=== PATIENT | male | born 1995 | race Caucasian/White ===

== ENCOUNTER 2017-04-04 14:27 | Emergency (ER) | payer SELFPAY ==
[~2017-04-04] VITALS: Ht 177.8 cm; Wt 70.3 kg
[2017-04-04] MEDS ORDERED: NORCO, ANEXSIA 5/325MG TABLET (HYDROcodone/ACETAMINOPHEN) PO ONE (15:30)
[2017-04-04] MEDS ORDERED: NAPR500T PO (15:50)
[2017-04-04 15:51] VITALS: BP 114/66
--- NOTE | 2017-04-04 15:55 | REP ---
Clinical: Trauma. Technique: Frontal view of the chest with multiple views of the right hemithorax. Findings: Frontal view of the chest demonstrates no acute cardiopulmonary process. Multiple views of the right hemithorax demonstrates no obvious acute rib fracture or pathology. Impression: Normal right rib series Signed by Remy Boateng MD 04/04/2017 03:46 P
== END 2017-04-04 16:04 | disposition home or self-care (01) ==
LOC: M ED 15:43
DX: S20.211A Contusion of right front wall of thorax, initial encounter (principal); W17.89XA Other fall from one level to another, initial encounter; Y92.89 Other specified places as the place of occurrence of the external cause; Y93.89 Activity, other specified; Y99.8 Other external cause status; F17.210 Nicotine dependence, cigarettes, uncomplicated

== ENCOUNTER 2017-05-25 18:23 | Emergency (ER) | payer SELFPAY ==
[~2017-05-25] VITALS: Ht 175.3 cm; Wt 70.5 kg
[~2017-05-25 18:23] MED LIST: NAPR500T PO
[2017-05-25] MEDS ORDERED: NORCO, ANEXSIA 5/325MG TABLET (HYDROcodone/ACETAMINOPHEN) PO ONE (19:45)
[2017-05-25] MEDS ORDERED: IBUPROFEN 800 MG TAB PO ONE (19:45)
[2017-05-25] MEDS ORDERED: IBUP80TA PO (20:25)
[2017-05-25 20:42] VITALS: BP 112/68
--- NOTE | 2017-05-26 07:23 | REP ---
Right knee five views: Comparison is 06/11/2016. Mineralization is normal. There is no fracture or dislocation. There is no effusion. No unusual calcifications. I suspect there is soft tissue edema anteriorly inferior to the patella. This is similar to the comparison study. Impression: Anterior soft tissue edema. No fracture or dislocation. Signed by Russ Lacey MD 05/26/2017 07:15 A
== END 2017-05-25 20:49 | disposition home or self-care (01) ==
LOC: M ED 18:23
DX: M70.41 Prepatellar bursitis, right knee (principal)

== ENCOUNTER 2019-09-01 06:18 | Emergency (ER) | payer SELFPAY ==
[~2019-09-01] VITALS: Ht 175.3 cm; Wt 68.2 kg
[~2019-09-01 06:18] MED LIST changes: +IBUP80TA PO; +NAPR-837 PO; -NAPR500T PO
[2019-09-01] MEDS ORDERED: ACET-840 PO (06:26)
[2019-09-01] MEDS ORDERED: KETOROLAC 60 MG/2 ML VIAL (J1885) IM ONE (07:00)
[2019-09-01] MEDS ORDERED: CYCLOBENZAPRINE 10 MG TAB PO ONE (07:00)
[2019-09-01] MEDS ORDERED: ACETAMINOPHEN 325 MG TAB PO ONE (07:00)
--- NOTE | 2019-09-01 07:38 | REP ---
Clinical: thoracic pain. Technique: AP, lateral, and swimmers views. Findings: Alignment and kyphosis is maintained. Vertebral bodies intact. No acute fracture / compression injury or subluxation. No degenerative changes. Paravertebral soft tissues are normal. Impression: Normal thoracic spine series. Electronically Signed by Remy Boateng MD 09/01/2019 07:30 A
--- NOTE | 2019-09-01 07:40 | REP ---
Clinical: Lower back pain . Technique: AP, lateral, bilateral oblique, and coned-down views. Findings: Alignment and lordosis is maintained. The vertebral bodies including transverse process and spinous processes are intact and normal. There is no evidence for acute fracture / compression injury or subluxation. No evidence for spondylolysis or spondylolisthesis. No significant degenerative change is noted. Impression: Normal lumbosacral spine radiograph series. Electronically Signed by Remy Boateng MD 09/01/2019 07:31 A
[2019-09-01 07:46] LABS: APPEARANCE, URINE CLEAR (CLEAR); BACTERIA, URINE AUTO NEGATIVE (NEGATIVE); BILIRUBIN, URINE AUTO NEGATIVE (NEGATIVE); BLOOD, URINE BLOOD NEGATIVE (NEGATIVE); COLOR, URINE STRAW (YELLOW); GLUCOSE, URINE (UA) AUTO NEGATIVE (NEGATIVE); KETONE, URINE AUTO NEGATIVE (NEGATIVE); LEUKOCYTE ESTERASE, URINE AUTO NEGATIVE (NEGATIVE); NITRITE, URINE AUTO NEGATIVE (NEGATIVE); PROTEIN, URINE AUTO NEGATIVE (NEGATIVE); RBC, URINE AUTO 0 /HPF (0-3); SPECIFIC GRAVITY URINE AUTO 1.003 (1.002-1.035); SQUAMOUS EPITHELIAL CELL UR AU 0 /HPF (0-6); UROBILINOGEN, URINE AUTO 0.2 mg/dL (0.0-2.0); WBC, URINE AUTO 0 /HPF (0-3)
[2019-09-01] MEDS ORDERED: KETO10TAB PO (08:11)
[2019-09-01] MEDS ORDERED: CYCL10TA PO ×2 (08:11→08:12)
[2019-09-01 08:24] VITALS: BP 113/61
== END 2019-09-01 08:25 | disposition home or self-care (01) ==
LOC: M ED 06:18
DX: M62.830 Muscle spasm of back (principal); F17.200 Nicotine dependence, unspecified, uncomplicated
CPT/HCPCS: 72070; 72110; 81001; 96372; 99283; J1885

== ENCOUNTER 2020-02-22 12:55 | Emergency (ER) | payer SELFPAY ==
[~2020-02-22] VITALS: Ht 177.8 cm; Wt 69.8 kg
[~2020-02-22 12:55] MED LIST changes: +ACET-840 PO; +CYCL-707 PO; +KETO10TAB PO
[2020-02-22] MEDS ORDERED: LIDOCAINE 1% MDV 20ML VIAL SC ONE (13:45)
[2020-02-22] MEDS ORDERED: BACT800T5 PO (14:04)
[2020-02-22 14:22] VITALS: BP 100/57
== END 2020-02-22 14:23 | disposition home or self-care (01) ==
LOC: M ED 12:55
DX: L05.01 Pilonidal cyst with abscess (principal)

== ENCOUNTER 2020-06-29 05:20 | Emergency (ER) | payer SELFPAY ==
[~2020-06-29] VITALS: Ht 175.3 cm; Wt 77.2 kg
[~2020-06-29 05:20] MED LIST changes: +BACT800T5 PO
--- NOTE | 2020-06-29 06:45 | REPVR ---
PROCEDURE INFORMATION: Exam: XR Right Shoulder Exam date and time: 06/29/2020 6:14 AM Age: 24 years old Clinical indication: Pain; Other: Injury TECHNIQUE: Imaging protocol: XR Right shoulder. Views: 2 or more views. COMPARISON: No relevant prior studies available. FINDINGS: Bones/joints: Normal. Soft tissues: Normal. IMPRESSION: No acute findings. Electronically signed by: Linwood Loera On 06/29/2020 06:45:15 AM
[2020-06-29 07:20] VITALS: BP 126/86
== END 2020-06-29 07:28 | disposition home or self-care (01) ==
LOC: M ED 05:20
DX: M25.511 Pain in right shoulder (principal); F17.200 Nicotine dependence, unspecified, uncomplicated

== ENCOUNTER 2021-02-23 11:35 | Emergency (ER) | payer SELFPAY ==
[~2021-02-23] VITALS: Ht 175.3 cm; Wt 70.5 kg
[2021-02-23] MEDS ORDERED: LIDOCAINE 1% MDV 20ML VIAL SC ONE (13:05)
[2021-02-23] MEDS ORDERED: PERCOCET 5MG/325MG TAB PO ONE (13:35)
[2021-02-23] MEDS ORDERED: ONDANSETRON 4 MG ORAL DISINTEGRATING TAB PO ONE (13:35)
[2021-02-23] MEDS ORDERED: BACTRIM 160MG/800MG DS TAB PO ONE (13:40)
[2021-02-23] MEDS ORDERED: BACT800T5 PO (14:04)
[2021-02-23 14:16] VITALS: BP 154/87
== END 2021-02-23 14:17 | disposition home or self-care (01) ==
LOC: M ED 11:35
DX: L05.01 Pilonidal cyst with abscess (principal); B35.4 Tinea corporis; F17.200 Nicotine dependence, unspecified, uncomplicated
CPT/HCPCS: 10060; 10160; 87070; 87076; 87077; 87205; 99283; Q0162

== ENCOUNTER 2021-03-01 10:03 | Emergency (ER) | payer SELFPAY ==
[~2021-03-01] VITALS: Ht 175.3 cm; Wt 76.7 kg
[2021-03-01 10:04] VITALS: BP 142/91
== END 2021-03-01 11:10 | disposition left against medical advice (07) ==
LOC: M ED 10:03
DX: Z53.21 Procedure and treatment not carried out due to patient leaving prior to being seen by health care provider (principal)

== ENCOUNTER 2021-07-27 00:51 | Emergency (ER) | payer SELFPAY ==
[~2021-07-27] VITALS: Ht 175.3 cm; Wt 75.3 kg
[2021-07-27 00:53] VITALS: BP 110/72
== END 2021-07-27 05:35 | disposition left against medical advice (07) ==
LOC: M ED 00:51
DX: Z53.21 Procedure and treatment not carried out due to patient leaving prior to being seen by health care provider (principal)

== ENCOUNTER 2021-07-30 16:10 | Emergency (ER) | payer SELFPAY ==
[~2021-07-30] VITALS: Ht 175.3 cm; Wt 75.2 kg
[2021-07-30 16:11] VITALS: BP 137/76
[2021-07-30 18:14] LABS: RSV AMPLIFICATION NEGATIVE (NEGATIVE)
[2021-07-30] MEDS ORDERED: ALBUTEROL 90 MCG/ACT 8GM HFA INHALER INH ONE (18:30)
[2021-07-30] MEDS ORDERED: VENTAER INH (18:57)
== END 2021-07-30 19:37 | disposition home or self-care (01) ==
LOC: M ED 16:10
DX: U07.1 COVID-19 (principal); J20.9 Acute bronchitis, unspecified; F17.200 Nicotine dependence, unspecified, uncomplicated

== ENCOUNTER → 2023-07-06 | Outpatient (REF) ==
[~2023-07-06] MED LIST changes: +VENTAER INH
== END ==
LOC: M EMP 08:05
PROVIDERS: ATTEND Family Medicine
DX: Z11.52 Encounter for screening for COVID-19 (principal)